=== PATIENT | female | born 1940 | race Caucasian/White ===

== ENCOUNTER → 2021-02-05 | Outpatient (CLI) | payer MEDICARE, OTHER ==
[~2021-02-05] MED LIST: AZOP0.2S OU; CETI10TA GT; COMB0.2S OU; CRAN500C PO; FLUT50SP; LEVO75TA3 PO; MAXZTA PO; NEXI1CAP3 PO; PREM0.45 PO; REQU1TAB14 PO; TRAV0.00 OU; ZEST20TA8 PO; ZYRT10CA PO; [UNRECOGNIZED DRUG - CODE] PO; pataday OU
--- NOTE | 2021-02-05 12:32 | REP ---
INDICATION: VENOUS HTN, NON PRESSURE ULCER COMPARISON: None. TECHNIQUE: Real time compression and duplex Doppler interrogation of the right lower extremity deep venous system is performed, including the left common femoral vein.Compression of the right peroneal and posterior tibial veins is performed. Evaluation for venous reflux is performed with the bed tipped. FINDINGS: The right common femoral, superficial femoral and popliteal veins are fully compressible with transducer pressure and demonstrate normal spontaneous and phasic flow, without evidence of deep venous thrombosis.The left common femoral vein demonstrates no thrombus.The right calf veins could not be seen due to patient body habitus. Evaluation for venous reflux is performed. The greater saphenous vein is not visualized, status post ablation. There is mild reflux in the common femoral vein and throughout the superficial femoral vein. There is an anterior accessory greater saphenous vein present which demonstrates reflux, up to 13 seconds duration. The anterior accessory greater saphenous vein leads to collaterals in the knee and calf region. IMPRESSION: No evidence of deep venous thrombosis of the right lower extremity femoral popliteal venous system.Greater saphenous vein not visualized status post ablation. Mild reflux in the common femoral and superficial femoral veins. Significant reflux in the anterior accessory greater saphenous vein, up to 13 seconds duration. This leads to collateral vessels in the knee and calf region. <Electronically signed by Priyank Castellon > 02/05/21 [id number]
== END ==
LOC: M RAD 10:34
PROVIDERS: ATTEND Surgery
DX: I87.311 Chronic venous hypertension (idiopathic) with ulcer of right lower extremity (principal); L97.812 Non-pressure chronic ulcer of other part of right lower leg with fat layer exposed

== ENCOUNTER → 2021-03-22 | Outpatient (CLI) | payer MEDICARE, OTHER | LOC: M RAD 14:56 | PROVIDERS: ATTEND Surgery | DX: I87.312 Chronic venous hypertension (idiopathic) with ulcer of left lower extremity (principal) ==

== ENCOUNTER → 2023-01-20 | Outpatient (REF) | payer MEDICARE, OTHER | LOC: M SFHCDERM 17:39 | PROVIDERS: ATTEND Nurse Practitioner Family | DX: D49.2 Neoplasm of unspecified behavior of bone, soft tissue, and skin (principal) ==